=== PATIENT | male | born 1995 | race African-American/Black ===

== ENCOUNTER 2017-10-21 19:00 | Outpatient (CLI) | payer MEDICAID | END 2017-10-21 19:01 | disposition home or self-care (01) | LOC: SLEEPLAB 19:00 | PROVIDERS: ATTEND Family Medicine | DX: G47.33 Obstructive sleep apnea (adult) (pediatric) (principal); E66.9 Obesity, unspecified; Z68.42 Body mass index [BMI] 45.0-49.9, adult | CPT/HCPCS: 95806 ==

== ENCOUNTER 2018-01-10 20:30 | Outpatient (CLI) | payer MEDICAID | END 2018-01-10 20:31 | disposition home or self-care (01) | LOC: SLEEPLAB 20:30 | PROVIDERS: ATTEND Family Medicine | DX: G47.33 Obstructive sleep apnea (adult) (pediatric) (principal); E66.9 Obesity, unspecified; Z68.42 Body mass index [BMI] 45.0-49.9, adult | CPT/HCPCS: 95811 ==

== ENCOUNTER 2018-07-15 13:57 | Emergency (ER) | payer SELFPAY ==
[2018-07-15 15:39] LABS: #Basophils 0.1 thou/uL (0.0-0.2); #Eosinphils 0.3 thou/uL (0.0-0.7); #Lymphocytes 1.9 thou/uL (1.20-3.40); #Monocytes 0.7 thou/uL (0.11-0.59); #Neutrophils 4.9 thou/uL (1.40-6.50); %Basophils 0.9 % (0.0-1.0); %Eosinophils 3.8 % (0.0-10.0); %Lymphocytes 24.6 % (28.0-48.0); %Neutrophils 61.8 % (31.0-61.0); Hemoglobin 16.1 g/dL (14.0-18.0); Mean Corpuscular HGB CONC 32.2 g/dL (32.0-36.0); Mean Corpuscular Hemoglobin 27.9 pg (25.0-35.0); Mean Corpuscular Volume 86.7 fL (78.0-98.0); Mean Platelet Volume 8.1 fL (7.4-10.4); Platelet Count 276 thou/uL (130-400); RBC Distribution Width 13.2 % (11.5-14.5); Red Blood Cell (RBC) Count 5.77 mill/uL (4.00-5.20); White Blood Cell (WBC) Count 7.9 thou/uL (4.8-10.8)
[2018-07-15 16:01] LABS: ALT (SGPT) 21 U/L (8-55); AST (SGOT) 14 U/L (5-34); Albumin 4.2 g/dL (3.5-5.0); Alkaline Phosphatase 124 U/L (Less than 750); Anion Gap 11 mmol/L (10-20); BUN (Urea Nitrogen) 13 mg/dL (8.9-20.6); Bilirubin, Total 0.5 mg/dL (0.2-1.2); Calc. Creatinine Clearance 0 mL/min (70-130); Calcium 9.3 mg/dL (7.8-10.44); Carbon Dioxide 24 mmol/L (22-29); Chloride 110 mmol/L (98-107); Estimated GFR-MDRD Greater than 90; Globulin 3.2 g/dL (2.4-3.5); Glucose 93 mg/dL (70-105); Protein, Total 7.4 g/dL (6.0-8.3); Sodium 141 mmol/L (136-145)
[2018-07-15] MEDS ORDERED: Acetaminophen 325 MG TAB ONE (17:52)
--- NOTE | 2018-07-15 18:27 | CT ---
CT BRAIN WITHOUT CONTRAST: 07/15/18 HISTORY: Lightheaded, headache. FINDINGS: Comparison made with exam of 10/26/02. No evidence of infarct, hemorrhage, midline shift, or abnormal extra-axial fluid collections are seen . The ventricular size is normal and the basilar cisterns patent. The bony calvarium is intact. There is mucosa disease in the paranasal sinuses. The mastoid air cells are clear. IMPRESSION: 1. No CT evidence of acute intracranial process. 2. Paranasal sinus disease. POS: [facility]
[2018-07-15] MEDS ORDERED: Rabies Vaccine Human 2.5 UNITS VIAL IM ONE (20:15)
--- NOTE | 2018-07-19 13:55 | EKG ---
Test Reason : ER INDICATION Blood Pressure : / mmHG Vent. Rate : 077 BPM Atrial Rate : 077 BPM P-R Int : 128 ms QRS Dur : 098 ms QT Int : 378 ms P-R-T Axes : 060 061 012 degrees QTc Int : 427 ms Normal sinus rhythm Normal ECG Confirmed by NESHA CABRERA DO ([id number]), school photograph editor DAVID DEL ROSARIO ([id number] on 07/19/2018 1:54:35 PM Referred By: Confirmed By:NESHA CABRERA DO
== END 2018-07-15 21:22 | disposition home or self-care (01) ==
LOC: ERS 13:57
DX: S81.852A Open bite, left lower leg, initial encounter (principal); R51 Headache; R42 Dizziness and giddiness; D64.9 Anemia, unspecified; J45.909 Unspecified asthma, uncomplicated; W54.0XXA Bitten by dog, initial encounter
CPT/HCPCS: 36415; 70450; 80053; 84484; 85025; 90376; 90471; 90472; 90675; 93005; 96360

== ENCOUNTER 2024-05-07 21:18 | Emergency (ER) | payer SELFPAY ==
[2024-05-08] MEDS ORDERED: Ketorolac Tromethamine 30 MG (1 mL) VIAL ONE (00:14)
== END 2024-05-08 02:40 | disposition home or self-care (01) ==
LOC: ERS 21:18
DX: S20.212A Contusion of left front wall of thorax, initial encounter (principal); V28.41XA Electric (assisted) bicycle driver injured in noncollision transport accident in traffic accident, initial encounter
CPT/HCPCS: 71045; 71260; 96374; J1885